=== PATIENT | male | born 1955 | race Caucasian/White ===

== ENCOUNTER 2017-09-24 09:49 | Day surgery (SDC) | payer OTHER ==
[2017-09-22 17:43] LABS: BASOPHIL % 0.7 % (0-2)
[2017-09-22 17:46] LABS: PLATELET COUNT 452 x10^3mcL (130-400)
[2017-09-22 17:54] LABS: ALKALINE PHOSPHATASE 62 U/L (46-116); ALT/SGPT 27 U/L (16-63); AST/SGOT 18 U/L (15-37); BILIRUBIN TOTAL 0.33 mg/dL (0.20-1.00); CALCIUM 8.8 mg/dL (8.5-10.1); CARBON DIOXIDE 30.4 mmol/L (21-32); CHLORIDE SERUM 104 mmol/L (98-107); CREATININE SERUM 0.8 mg/dL (0.7-1.3); GFR1 > 60 mL/min; GLUCOSE SERUM 95 mg/dL (74-106); POTASSIUM SERUM 3.7 mmol/L (3.5-5.1); SODIUM SERUM 141 mmol/L (136-145)
[~2017-09-24] VITALS: Ht 170.2 cm; Wt 77.1 kg
[~2017-09-24 09:49] MED LIST: ECO81 PO
[2017-09-24 10:02] VITALS: BP 138/75
[2017-09-24 12:39] VITALS: BP 128/80
== END 2017-09-24 12:50 | disposition home or self-care (01) ==
LOC: DS 09:49 → OR 11:00 → DS 11:00
PROVIDERS: Surgery
PROC: 0WB20ZZ Excision of Face, Open Approach (ICD-10-PCS; principal; 2017-09-24 11:00)
DX: L72.0 Epidermal cyst (principal); Z68.25 Body mass index [BMI] 25.0-25.9, adult
CPT/HCPCS: J0690; J2001; J2405; J2704; J3010; J7120

== ENCOUNTER → 2020-07-17 | Outpatient (CLI) | payer OTHER ==
[2020-07-18 08:40] LABS: BASOPHIL % 0.6 % (0-2); PLATELET COUNT 362 x10^3mcL (130-400); RED CELL DISTRIBUTION WIDTH 14.4 % (11.5-14.5)
[2020-07-18 08:42] LABS: ALBUMIN 3.9 g/dL (3.4-5.0); ALKALINE PHOSPHATASE 62 U/L (46-116); ALT/SGPT 40 U/L (16-63); AST/SGOT 23 U/L (15-37); BILIRUBIN DIRECT 0.11 mg/dL (0.0-0.2); BILIRUBIN TOTAL 0.6 mg/dL (0.20-1.00); CALCIUM 8.8 mg/dL (8.5-10.1); CARBON DIOXIDE 30.3 mmol/L (21-32); CHLORIDE SERUM 106 mmol/L (98-107); CHOLESTEROL 161 mg/dL (<200); CHOLESTEROL/HDL RATIO 3.3; CREATININE SERUM 0.9 mg/dL (0.7-1.3); GFR1 > 60 mL/min; GLUCOSE SERUM 95 mg/dL (74-106); HDL CHOLESTEROL 49 mg/dL (40-60); SODIUM SERUM 141 mmol/L (136-145); TOTAL PROTEIN, SERUM 6.7 g/dL (6.4-8.2); TRIGLYCERIDES 104 mg/dL (<150)
== END | disposition home or self-care (01) ==
LOC: LB 14:25
PROVIDERS: ATTEND Internal Medicine
DX: Z00.00 Encounter for general adult medical examination without abnormal findings (principal)
CPT/HCPCS: 84153

== ENCOUNTER → 2020-08-10 | Outpatient (REF) | END | disposition home or self-care (01) | LOC: LB 13:22 | DX: Z20.828 Contact with and (suspected) exposure to other viral communicable diseases (principal) | CPT/HCPCS: U0003 ==

== ENCOUNTER → 2020-09-25 | Outpatient (CLI) | payer OTHER ==
[2020-09-25 10:42] LABS: microscopic required? NO
[2020-09-25 10:51] LABS: BASOPHIL % 1.4 % (0.2-1.5); PLATELET COUNT 390 x10^3mcL (152-348)
[2020-09-25 11:03] LABS: RED CELL DISTRIBUTION WIDTH 14.9 % (12.1-16.2)
[2020-09-25 11:05] LABS: UA SPECIFIC GRAVITY 1.015 (1.005-1.035); urine erythrocyte NEGATIVE (NEGATIVE)
[2020-09-25 11:25] LABS: ALBUMIN 3.9 g/dL (3.4-5.0); ALKALINE PHOSPHATASE 78 U/L (46-116); ALT/SGPT 46 U/L (16-63); AST/SGOT 21 U/L (15-37); BILIRUBIN TOTAL 0.54 mg/dL (0.20-1.00); CALCIUM 8.9 mg/dL (8.5-10.1); CHLORIDE SERUM 102 mmol/L (98-107); CREATININE SERUM 0.9 mg/dL (0.7-1.3); GFR1 > 60 mL/min; GLUCOSE SERUM 92 mg/dL (74-106); POTASSIUM SERUM 3.9 mmol/L (3.5-5.1); SODIUM SERUM 139 mmol/L (136-145); TOTAL PROTEIN, SERUM 7.3 g/dL (6.4-8.2)
== END | disposition home or self-care (01) ==
LOC: LB 10:24
DX: N40.1 Benign prostatic hyperplasia with lower urinary tract symptoms (principal)
CPT/HCPCS: 84153; 84402; 84403